=== PATIENT | male | born 1945 | race Caucasian/White ===

== ENCOUNTER 2021-01-07 09:43 | Outpatient (CLI) | payer MEDICARE, BC ==
[2021-01-07 21:49] LABS: SARS-CoV-2 PCR by NAA Not Detected (NotDetected)
== END 2021-01-07 09:44 | disposition home or self-care (01) ==
LOC: LABBT 09:43
PROVIDERS: ATTEND Ophthalmology Retina Specialist
DX: Z01.812 Encounter for preprocedural laboratory examination (principal); H35.371 Puckering of macula, right eye; Z20.822 Contact with and (suspected) exposure to COVID-19
CPT/HCPCS: U0003; U0005